=== PATIENT | male | born 1995 | race Caucasian/White ===

== ENCOUNTER 2022-10-17 03:57 | Emergency (ER) | payer BC ==
[2022-10-17] MEDS ORDERED: CYCLOBENZAPRINE 10 MG TAB ONE (04:27)
[2022-10-17] MEDS ORDERED: KETOROLAC 30 MG/ML INJ ONE (04:28)
[2022-10-17] MEDS ORDERED: MORPHINE 4 MG/ML SYR ONE (04:28)
[2022-10-17] MEDS ORDERED: ONDANSETRON 4 MG/2 ML VIAL ONE (04:29)
--- NOTE | 2022-10-17 07:11 | ER ---
Nurse's Notes [facility] Name: Jovany Red Age: 27 yrs Sex: Male : 1995 Arrival Date: 10/17/2022 Time: 03:57 Bed 20 Private MD: Diagnosis: Low back pain;Acute lumbar back sprain, exacerbation of chronic back pain;Lumbar spinal canal stenosis. Neuroforaminal stenosis L-spine. Intervertebral disc bulge. Presentation: 10/17 04:02 Chief complaint: EMS states: 27 year old male reports feeling lower back pain that ha1 started suddenly. He has had episodes of back pain before but not as bad as now. 04:02 Method Of Arrival: EMS: [facility] ha1 04:02 Coronavirus screen: Vaccine status:. Coronavirus screen: Vaccine status: Patient ha1 reports being unvaccinated. Ebola Screen: No symptoms or risks identified at this time. Initial Sepsis Screen: Does the patient meet any 2 criteria? No. Patient's initial sepsis screen is negative. Does the patient have a suspected source of infection? No. Patient's initial sepsis screen is negative. Risk Assessment: Do you want to hurt yourself or someone else? Patient reports no desire to harm self or others. Onset of symptoms was October 17, 2022. 04:02 Acuity: MAR 4 ha1 Triage Assessment: 04:02 General: Appears uncomfortable, Behavior is cooperative, anxious. Pain: Complains of ha1 pain in back Pain does not radiate. Pain currently is 10 out of 10 on a pain scale. Pain began suddenly, 3 hours ago. Aggravated by exercise, increased activity. Neuro: Level of Consciousness is awake, alert, obeys commands, Oriented to person, place, time, situation. Cardiovascular: Capillary refill < 3 seconds Patient's skin is warm and dry. Respiratory: Airway is patent Respiratory effort is even, unlabored, Respiratory pattern is regular, symmetrical. GI: No signs and/or symptoms were reported involving the gastrointestinal system. Abdomen is non-distended, obese. : No signs and/or symptoms were reported regarding the genitourinary system. Derm: Skin is pink, warm \T\ dry. Musculoskeletal: Circulation, motion, and sensation intact. Range of motion: intact in all extremities. Historical: - Allergies: 04:02 No Known Allergies; ha1 - Home Meds: 04:02 None [Active]; ha1 - Immunization history:: Adult Immunizations up to date. - Social history:: Smoking status: Reported history of juuling and/or vaping. - Family history:: not pertinent. Screenin:02 [facility] ED Fall Risk Assessment (Adult) History of falling in the last 3 months, ha1 including since admission No falls in past 3 months (0 pts) Confusion or Disorientation No (0 pts) Intoxicated or Sedated No (0 pts) Impaired Gait No (0 pts) Mobility Assist Device Used No (0 pt) Altered Elimination No (0 pt) Score/Fall Risk Level 0 - 2 = Low Risk Oriented to surroundings, Maintained a safe environment, Educated pt \T\ family on fall prevention, incl call for assistance when getting out of bed. Abuse screen: Denies threats or abuse. Denies injuries from another. Nutritional screening: No deficits noted. Tuberculosis screening: No symptoms or risk factors identified. Assessment: 04:02 General: see triage assesment.. ha1 05:00 Reassessment: Patient and/or family updated on plan of care and expected duration. Pain ha1 level reassessed. Patient is alert, oriented x 3, equal unlabored respirations, skin warm/dry/pink. Patient states feeling better. 06:17 Reassessment: Patient and/or family updated on plan of care and expected duration. Pain ha1 level reassessed. Patient is alert, oriented x 3, equal unlabored respirations, skin warm/dry/pink. back from CT Patient states feeling better. Patient states symptoms have improved. Vital Signs: 04:07 BP 160 / 117; Pulse 100; Resp 20; Temp 98.1; Pulse Ox 98% ; Weight 140.61 kg; Height 5 rv1 ft. 11 in. ; Pain 8/10; 05:00 BP 145 / 88; Pulse 79; Resp 19 S; Pulse Ox 94% on R/A; ha1 06:00 BP 138 / 77; Pulse 68; Resp 18 S; Pulse Ox 94% on R/A; ha1 04:07 Body Mass Index 43.24 (140.61 kg, 180.34 cm) rv1 04:07 Pain Scale: Adult rv1 ED Course: 04:02 Patient arrived in ED. ja2 04:02 Patient has correct armband on for positive identification. Placed in gown. Bed in low ha1 position. Call light in reach. Side rails up X 1. Adult w/ patient. 04:08 Edouard Younger MD is Attending Physician. sp4 04:16 Radha Mccartney RN is Primary Nurse. ha1 04:20 Inserted saline lock: 22 gauge in right forearm, using aseptic technique. ha1 04:45 Triage completed. ha1 06:31 CT Lumbar Spine Wo Con In Process Unspecified. EDMS 07:10 Daniel Bravo MD is Referral Physician. sp4 07:29 Arm band placed on right wrist. ap3 07:29 No provider procedures requiring assistance completed. ap3 07:31 IV discontinued, intact, bleeding controlled, No redness/swelling at site. Pressure ap3 dressing applied. Administered Medications: 04:25 Drug: Ketorolac IVP 60 mg Route: IVP; Site: right forearm; ha1 05:00 Follow up: Response: No adverse reaction; Pain is decreased ha1 04:30 Drug: Ondansetron IVP 8 mg Route: IVP; Site: right forearm; ha1 06:45 Follow up: Response: No adverse reaction ha1 04:35 Drug: morphine IVP or IV 8 mg Route: IVP; Infused Over: 4 mins; Site: right forearm; ha1 05:00 Follow up: Response: No adverse reaction; Pain is decreased; RASS: Alert and Calm (0) ha1 04:39 Drug: Cyclobenzaprine PO 10 mg Route: PO; ha1 05:00 Follow up: Response: No adverse reaction ha1 07:28 Drug: [place] PO 10 mg-325 mg 1 tabs Route: PO; ap3 07:28 Drug: Ibuprofen PO 800 mg Route: PO; ap3 07:28 Drug: Promethazine PO 25 mg Route: PO; ap3 Medication: 07:29 VIS not applicable for this client. ap3 Outcome: 07:11 Discharge ordered by . sp4 07:29 Condition: good ap3 07:29 Discharge instructions given to patient, family, Instructed on discharge instructions, follow up and referral plans. medication usage, Demonstrated understanding of instructions, follow-up care, medications, Prescriptions given X 4. 08:02 Patient left the ED. iw Signatures: Dispatcher [employer] EDPA Drea Khan RN RN iw Prokisch, Amanda, RN RN ap3 Tianna Manzo Heidy, RN RN ha1 Grant, Victoria cordova1 Edouard Younger MD MD sp4
--- NOTE | 2022-10-17 07:12 | EDPHYS ---
Physician Documentation [facility] Name: Jovany Red Age: 27 yrs Sex: Male : 1995 Arrival Date: 10/17/2022 Time: 03:57 Bed 20 Private MD: ED Physician Edouard Younger HPI: 10/17 04:08 This 27 yrs old Male presents to ER via Unassigned with complaints of Back sp4 Pain. 07:19 The patient has experienced similar episodes in the past. 27-year-old male with history sp4 of morbid obesity, history of bulging L-spine intervertebral discs presents with worsening pain in the lower back. Patient states pain has been present for the past several months but last evening pain has significantly intensified. This morning patient was unable to stand up and had to call EMS to bring him to the hospital.. Historical: - Allergies: 04:02 No Known Allergies; ha1 - Home Meds: 04:02 None [Active]; ha1 - Immunization history:: Adult Immunizations up to date. - Social history:: Smoking status: Reported history of juuling and/or vaping. - Family history:: not pertinent. ROS: 07:19 Constitutional: Negative for fever, chills, and weight loss, Eyes: Negative for injury, sp4 pain, redness, and discharge, ENT: Negative for injury, pain, and discharge, Neck: Negative for injury, pain, and swelling, Cardiovascular: Negative for chest pain, palpitations, and edema, Respiratory: Negative for shortness of breath, cough, wheezing, and pleuritic chest pain, Abdomen/GI: Negative for abdominal pain, nausea, vomiting, diarrhea, and constipation, Back: Negative for injury positive for moderate to severe lower back pain : Negative for injury, bleeding, discharge, and swelling, MS/Extremity: Negative for injury and deformity, Skin: Negative for injury, rash, and discoloration, Neuro: Negative for headache, weakness, numbness, tingling, and seizure, Psych: Negative for depression, anxiety, Allergy/Immunology: Negative for hives, rash, and allergies Endocrine: Negative for neck swelling, polydipsia, polyuria, polyphagia, and weight changes Hematologic/Lymphatic: Negative for swollen nodes, abnormal bleeding, and unusual bruising Exam: 07:19 Constitutional: This is a well developed, well nourished patient who is awake, alert, sp4 and in no acute distress. Morbidly obese male uncomfortable appearing Head/Face: Normocephalic, atraumatic. Eyes: Pupils equal round and reactive to light, extra-ocular motions intact. Lids and lashes normal. Conjunctiva and sclera are not injected. Cornea within normal limits. Periorbital areas with no swelling, redness, or edema. ENT: Nares patent. No nasal discharge, no septal abnormalities noted. Tympanic membranes are normal and external auditory canals are clear. Oropharynx with no redness, swelling, or masses, exudates, or evidence of obstruction, uvula midline. Mucous membranes moist. Neck: Trachea midline, no thyromegaly or masses palpated, and no cervical lymphadenopathy. Supple, full range of motion without nuchal rigidity, or vertebral point tenderness. No Meningismus. Chest/axilla: Normal chest wall appearance and motion. Nontender with no deformity. No lesions are appreciated. Cardiovascular: Regular rate and rhythm with a normal S1 and S2. No gallops, murmurs, or rubs. Normal PMI, no JVD. No pulse deficits. Respiratory: Lungs have equal breath sounds bilaterally, clear to auscultation and percussion. No rales, rhonchi or wheezes noted. No increased work of breathing, no retractions or nasal flaring. Abdomen/GI: Soft, non-tender, with normal bowel sounds. No distension or tympany. No guarding or rebound. No evidence of tenderness throughout. Back: No spinal tenderness. No costovertebral tenderness. Right paraspinal muscle tenderness. At on arrival not able to ambulate Male : Normal genitalia with no discharge or lesions. Skin: Warm, dry with normal turgor. Normal color with no rashes, no lesions, and no evidence of cellulitis. MS/ Extremity: Pulses equal, no cyanosis. Neurovascular intact. Full, normal range of motion. No weakness on exam. Strength 5 out of 5 bilateral lower extremity Neuro: Awake and alert, GCS 15, oriented to person, place, time, and situation. Cranial nerves II-XII grossly intact. Motor strength 5/5 in all extremities. Sensory grossly intact. Psych: Awake, alert, with orientation to person, place and time. Behavior, mood, and affect are within normal limits Vital Signs: 04:07 BP 160 / 117; Pulse 100; Resp 20; Temp 98.1; Pulse Ox 98% ; Weight 140.61 kg; Height 5 rv1 ft. 11 in. ; Pain 8/10; 05:00 BP 145 / 88; Pulse 79; Resp 19 S; Pulse Ox 94% on R/A; ha1 06:00 BP 138 / 77; Pulse 68; Resp 18 S; Pulse Ox 94% on R/A; ha1 04:07 Body Mass Index 43.24 (140.61 kg, 180.34 cm) rv1 04:07 Pain Scale: Adult rv1 MDM: 04:13 Patient medically screened. sp4 07:19 Differential diagnosis: Fatigue Fracture Obesity Osteoarthritis ruptured disc, sp4 Scoliosis spinal injury, sprain. Data reviewed: vital signs, EMS record, old medical records, radiologic studies, CT scan. ED course: CT L-spine revealed multilevel congenital lumbar spinal canal stenosis. Severe focal spinal canal stenosis neuroforaminal stenosis L3-L4 due to lateral disc bulge and congenital stenosis. Multilevel congenital lumbar spinal stenosis present. Large disc bulge L3-L4 and congenital stenosis resulting in severe spinal canal stenosis moderate spinal canal stenosis at L5 L4. Severe bilateral L3 neuroforaminal stenosis due to disc bulge and facet hypertrophy. Moderate bilateral L5 and L4 neuroforaminal stenosis due to facet hypertrophy.. 10/17 05:35 Order name: CT Lumbar Spine Wo Con sp4 10/17 04:13 Order name: Saline Lock; Complete Time: 04:39 sp4 Administered Medications: 04:25 Drug: Ketorolac IVP 60 mg Route: IVP; Site: right forearm; ha1 05:00 Follow up: Response: No adverse reaction; Pain is decreased ha1 04:30 Drug: Ondansetron IVP 8 mg Route: IVP; Site: right forearm; ha1 06:45 Follow up: Response: No adverse reaction ha1 04:35 Drug: morphine IVP or IV 8 mg Route: IVP; Infused Over: 4 mins; Site: right forearm; ha1 05:00 Follow up: Response: No adverse reaction; Pain is decreased; RASS: Alert and Calm (0) ha1 04:39 Drug: Cyclobenzaprine PO 10 mg Route: PO; ha1 05:00 Follow up: Response: No adverse reaction ha1 07:28 Drug: Elnora PO 10 mg-325 mg 1 tabs Route: PO; ap3 07:28 Drug: Ibuprofen PO 800 mg Route: PO; ap3 07:28 Drug: Promethazine PO 25 mg Route: PO; ap3 Disposition Summary: 10/17/22 07:11 Discharge Ordered Location: Home sp4 Problem: new sp4 Symptoms: have improved sp4 Condition: Stable sp4 Diagnosis - Low back pain sp4 - Acute lumbar back sprain, exacerbation of chronic back pain sp4 - Lumbar spinal canal stenosis. Neuroforaminal stenosis L-spine. Intervertebral sp4 disc bulge. Followup: sp4 - With: Daniel Bravo MD - When: 7 - 10 days - Reason: Recheck today's complaints Discharge Instructions: - Discharge Summary Sheet sp4 - Acute Back Pain, Adult sp4 Forms: - Prescription Opioid Use sp4 Prescriptions: - Ibuprofen 800 mg Oral Tablet - take 1 tablet by ORAL route every 8 hours As needed take with food; 30 tablet; sp4 Refills: 0, Product Selection Permitted - Prednisone 20 mg Oral Tablet - take 2 tablets by ORAL route once daily for 5 days; 10 tablet; Refills: 0, sp4 Product Selection Permitted - methocarbamol 750 mg Oral Tablet - take 2 tablets by ORAL route every 6 hours for 3 days; 60 tablet; Refills: 0, sp4 Product Selection Permitted Signatures: Dispatcher [employer] Carla Handley RN RN ap3 Radha Mccartney RN RN ha1 Edouard Younger MD MD sp4
[2022-10-17] MEDS ORDERED: HYDROCODONE/APAP 10/325 TAB ONE (07:27)
[2022-10-17] MEDS ORDERED: PROMETHAZINE 25 MG TABLET ONE (07:27)
[2022-10-17] MEDS ORDERED: IBUPROFEN 400 MG TAB ONE (07:28)
[2022-10-17 08:12] VITALS: TEMP 98.1
[2022-10-17 08:27] VITALS: O2SAT 94
[2022-10-17 08:29] VITALS: BP 138/77
--- NOTE | 2022-10-18 11:32 | RAD REPORT ---
EXAM DESCRIPTION: CT - Spine Lumbar Wo Con - 10/17/2022 7:22 am COMPARISON: None. CLINICAL HISTORY: [facility] MA[facility] back pain acute severe TECHNIQUE: Axial CT images were obtained through the entire lumbar spine without contrast. Sagitta l and coronal reconstructions are provided. Automated exposure control was utilized on this examinati on as a dose lowering technique. FINDINGS: Vertebrae: Vertebral statures and alignment are normal. No acute fracture, dislocation o r destructive osseous process is present. Spinal canal, foramina, and facet joints: Multilevel congenital lumbar spinal canal stenosis is present. A large disc bulge at L3-L4 and congen ital stenosis results in severe spinal canal stenosis. Moderate spinal canal stenosis at L4-L5 due to disc bulge and congenital stenosis. Severe bilateral L3 neural foraminal stenoses due to disc bulge and facet hypertrophy. Moderate bilateral L4 and L5 neural foraminal stenoses due to facet hypertroph y. Paraspinous soft-tissues: Normal. Other Findings: None. L-SPINE IMPRESSION: Multilevel congenital lumbar spinal canal stenosis. Severe focal spinal canal stenosis and neural for aminal stenoses at L3-L4 due to large disc bulge and congenital stenosis. Electronically signed by: Gilmer Lau MD 10/17/2022 7:07 AM CDT Due to temporary technical issues with the PACS/Fluency reporting system, reports are being signed by the in house radiologists without review as a courtesy to insure prompt reporting. The interpreting radiologist is fully responsible for the content of the report.
== END 2022-10-17 08:02 | disposition home or self-care (01) ==
LOC: ER 03:57
DX: S33.5XXA Sprain of ligaments of lumbar spine, initial encounter (principal); M48.061 Spinal stenosis, lumbar region without neurogenic claudication; M99.53 Intervertebral disc stenosis of neural canal of lumbar region
CPT/HCPCS: 72131; Q0169; J2405